=== PATIENT | female | born 1950 | race Hispanic/Latino ===

== ENCOUNTER → 2018-05-03 | Outpatient (CLI) | payer OTHER, MEDICARE | END | disposition home or self-care (01) | LOC: RAH 10:38 | PROVIDERS: ATTEND Family Medicine | DX: K76.89 Other specified diseases of liver (principal) | CPT/HCPCS: 76700 ==

== ENCOUNTER → 2018-06-16 | Outpatient (CLI) | payer OTHER, MEDICARE ==
[~2018-06-16] MED LIST: IOHEXOL-350 75 ML VIAL IV ONE
== END | disposition home or self-care (01) ==
LOC: RAH 06-04 08:08
PROVIDERS: ATTEND Internal Medicine Gastroenterology
DX: K57.90 Diverticulosis of intestine, part unspecified, without perforation or abscess without bleeding (principal); K76.89 Other specified diseases of liver; I70.90 Unspecified atherosclerosis; M47.815 Spondylosis without myelopathy or radiculopathy, thoracolumbar region
CPT/HCPCS: 74178; Q9967

== ENCOUNTER → 2018-10-14 | Outpatient (CLI) | payer OTHER, MEDICARE ==
[~2018-10-14] MED LIST changes: +GADODIAMIDE 10 MMOL/20 ML VIAL IV ONE; -IOHEXOL-350 75 ML VIAL IV ONE
== END | disposition home or self-care (01) ==
LOC: RAH 08:11
PROVIDERS: ATTEND Internal Medicine Gastroenterology
DX: R16.0 Hepatomegaly, not elsewhere classified (principal); K76.89 Other specified diseases of liver
CPT/HCPCS: 74183; A9579

== ENCOUNTER 2022-07-11 07:20 | Day surgery (SDC) | payer OTHER, MEDICARE ==
[2022-07-07 11:57] LABS: BASOPHILS % (AUTO) 0.4 % (0.0-5.0); HEMATOCRIT 36.4 % (36-48); LYMPHOCYTES % (AUTO) 30.9 % (21.0-51.0); MEAN CORPUSCULAR HEMOGLOBIN 29.8 pg (27.0-33.0); MEAN CORPUSCULAR HGB CONC 31.9 g/dL (32.0-36.0); MEAN CORPUSCULAR VOLUME 93.6 fL (79-99); MONOCYTES % (AUTO) 7.3 % (3.0-13.0); NEUTROPHILS % (AUTO) 59.1 % (40.0-77.0); PLATELET COUNT (AUTO) 243 K/uL (130-400); RED BLOOD CELL COUNT(AUTO) 3.89 MIL/uL (4.00-5.50); RED CELL DISTRIBUTION WIDTH 12.7 % (11.0-15.5)
[2022-07-07 12:08] LABS: INR 0.93 (0.85-1.15)
[2022-07-07 12:09] LABS: PARTIAL THROMBOPLASTIN TIME 26.8 SEC (26.3-35.5)
[2022-07-07 12:10] VITALS: BP 126/59
[2022-07-07 12:12] LABS: ALBUMIN 3.6 g/dL (3.5-5.0); BILIRUBIN,DIRECT 0.1 mg/dL (0.0-0.3); CREATININE 0.7 mg/dL (0.5-1.5); POTASSIUM 4.4 mmol/L (3.5-5.1); TOTAL PROTEIN, SERUM 7.1 g/dL (6.0-8.3)
[~2022-07-11] VITALS: Ht 160 cm; Wt 78.5 kg
[2022-07-11] VITALS (18 sets, daily range): BP systolic 122–149; BP diastolic 53–68
[~2022-07-11 07:20] MED LIST changes: +ATOR10TA69 PO; +ETOD400T4 PO; -GADODIAMIDE 10 MMOL/20 ML VIAL IV ONE; +GLIM2TAB30 PO; +LISI10TA24 PO; +METF-445 PO; +MIRT-22 PO; +OMEP20CA12 PO; +PIOG30TA70 PO
[2022-07-11] MEDS ORDERED: 0.9%NACL 1000ML 1,000 ML IV ONE (08:44)
[2022-07-11] MEDS: CEFAZOLIN SODIUM 2 GM VIAL ONE ×2 (09:00→10:31)
[2022-07-11] MEDS ORDERED: ONDANSETRON 4MG INJ ONE (10:06)
[2022-07-11] MEDS ORDERED: PROPOFOL 10 MG/ML 20ML VIAL IV ONE (10:06)
[2022-07-11] MEDS ORDERED: LIDOCAINE PF 100MG/5ML (2%) SYRINGE 5ML ONE (10:06)
[2022-07-11] MEDS ORDERED: DEXAMETHASONE SOD PHOSPHATE 10MG/ML 1ML VIAL ONE (10:06)
[2022-07-11] MEDS ORDERED: MIDAZOLAM HCL 1 MG/ML 2ML VIAL ONE (10:06)
[2022-07-11] MEDS ORDERED: SUCCINYLCHOLINE 200MG/10ML SYR ONE (10:06)
[2022-07-11] MEDS ORDERED: GLYCOPYRROLATE 1 MG/5 ML SYRINGE ONE (10:06)
[2022-07-11] MEDS ORDERED: NEOSTIGMINE 5MG/5ML SYR IV ONE (10:06)
[2022-07-11] MEDS ORDERED: ROCURONIUM 10MG/1ML SYR 10 MG/ML ML ONE (10:07)
[2022-07-11] MEDS ORDERED: FENTANYL CITRATE PF 50 MCG/1 ML 2ML VIAL ONE (10:07)
[2022-07-11] MEDS ORDERED: BUPIVACAINE/PF 0.25% 30ML VIAL IJ ONE (10:11)
== END 2022-07-11 13:25 | disposition home or self-care (01) ==
LOC: DAH 07:20
PROVIDERS: ATTEND Surgery
DX: D17.21 Benign lipomatous neoplasm of skin and subcutaneous tissue of right arm (principal); Z20.822 Contact with and (suspected) exposure to COVID-19; L98.8 Other specified disorders of the skin and subcutaneous tissue; I10 Essential (primary) hypertension; K21.9 Gastro-esophageal reflux disease without esophagitis; E11.9 Type 2 diabetes mellitus without complications; E66.9 Obesity, unspecified; Z83.3 Family history of diabetes mellitus; Z68.31 Body mass index [BMI] 31.0-31.9, adult; Z79.84 Long term (current) use of oral hypoglycemic drugs; Z98.890 Other specified postprocedural states; Z79.01 Long term (current) use of anticoagulants; Z79.899 Other long term (current) drug therapy
CPT/HCPCS: 80076; 80048; 85025; 85610; 85730; 87426; 36415; 93005; 23073; 11401; 82948 ×2; 88304; 88305; 88342; 88341 ×8; A6260; J7030 ×2; J3010; J0330; J3490 ×2; J1100; J2710; J2001; J2250; J2704; J2405; J0690

== ENCOUNTER → 2023-09-10 | Outpatient (CLI) | payer OTHER, MEDICARE ==
[~2023-09-10] MED LIST changes: -ETOD400T4 PO; +[UNRECOGNIZED DRUG - CODE] PO
== END | disposition home or self-care (01) ==
LOC: RAH 13:47
PROVIDERS: ATTEND Family Medicine
DX: D25.9 Leiomyoma of uterus, unspecified (principal); R10.2 Pelvic and perineal pain
CPT/HCPCS: 76856